=== PATIENT | female | born 1970 | race Caucasian/White ===

== ENCOUNTER → 2017-02-09 | Outpatient (CLI) | payer OTHER, MEDICAID | LOC: FIMAGING 13:36 | DX: Z48.89 Encounter for other specified surgical aftercare (principal); Z98.2 Presence of cerebrospinal fluid drainage device ==

== ENCOUNTER 2017-07-24 13:34 | Emergency (ER) | payer OTHER, MEDICAID ==
--- NOTE | 2017-07-24 13:43 | EDPHY ---
H & P Time Seen by Provider: 07/24/17 13:35 HPI/ROS: CHIEF COMPLAINT: Head injury and abrasion HISTORY OF PRESENT ILLNESS: 47-year-old female, wheelchair bound, arrives via ambulance after her electric wheelchair hit a bump on the sidewalk causing wheelchair to tip over land on her left side impacting her head with no loss of consciousness. No anticoagulant use history. History of CVA 1 month ago, treated at another facility. History of hydrocephalus, [employer] shunt. No alcohol or drug use. No headache. No amnesia. No nausea or vomiting. No midline C- spine pain. No peripheral paresthesia, weakness, numbness. Tetanus up-to-date PRIMARY CARE PROVIDER: REVIEW OF SYSTEMS: A ten point review of systems was performed and is negative with the exception of the items mentioned in the HPI PAST MEDICAL/SURGICAL HISTORY: no anticoagulant use, past medical history significant for depression, CVA, hydrocephalus, seizure disorder, [employer] shunt, depression. Wheelchair-bound in an electric wheelchair SOCIAL HISTORY: denies alcohol use at time of incident PHYSICAL EXAM 1) GENERAL: Well-developed, well-nourished, alert and oriented. Appears to be in no acute distress. Answering questions appropriately. Smiling, laughing appears well 2) HEAD: Normocephalic, abrasion to left parietal scalp. No hematoma. No depression. 3) HEENT: Pupils equal, round, reactive to light bilaterally. Negative Horners. Nasopharynx, oropharynx, clear. No deformity or angulation of nose. No septal hematoma. No rhinorrhea. No oral trauma. Ears bilaterally with normal tympanic membranes. No hemotympanum. No fluid or blood in the external auditory canal. No raccoon eyes. No Arellano sign. Teeth are normally aligned with no gross malocclusion, TMJ bilaterally nontender, facial bones nontender including the zygomatic arch, maxilla mandible. 4) NECK: No cervical collar is on. Posterior cervical spine is nontender, no stepoff, no effusion. Full range of motion which does not elicit any midline cervical spine pain, no posterior midline tenderness, no step-off. 5) LUNGS: Clear to auscultation bilaterally, no wheezes, no rhonchi, no retractions. No obvious signs of trauma. No chest wall pain. No flaring, no grunting. Moving symmetrically. No crepitus. 6) HEART: Regular rate and rhythm, 7) ABDOMEN: No guarding, no rebound, no focal tenderness, no peritoneal signs, no signs of trauma, no ecchymosis 8) MUSCULOSKELETAL: , no focal areas of tenderness, no obvious trauma. 9) BACK: No midline vertebral tenderness, no fluctuance, no step-off, no obvious trauma, no visual or palpable abnormality. 10) SKIN: No laceration. No abrasion DIFFERENTIAL DIAGNOSIS: Not necessarily in any particular order, my differential diagnosis includes, but is not limited to, concussion, skull fracture, intraparenchymal contusion, subarachnoid, subdural and epidural hematoma. The patient understands that this diagnosis is provisional and can never be 100% accurate. Constitutional: Initial Vital Signs Temperature (C) 38.0 C 07/24/17 13:44 Heart Rate 99 07/24/17 13:44 Respiratory Rate 19 07/24/17 13:44 Blood Pressure 122/90 H 07/24/17 13:44 O2 Sat (%) 93 07/24/17 13:44 O2 Delivery Mode Room Air Allergies/Adverse Reactions: No Known Allergies Allergy (Unverified 02/26/10 20:01) Home Medications: Medication Instructions Recorded Bcp 02/26/10 LEXAPRO 02/26/10 ASPIRIN 07/24/17 Medical Decision Making ED Course/Re-evaluation: Patient is feeling well with no complaints of pain or discomfort, no anticoagulant use, no headache, no nausea no vomiting, GCS 15, no signs of basilar skull fracture, no alcohol or drug use, no seizure, fall not greater than 3 feet. At this time will hold on CT imaging. Wound has been cleaned and dressed by ER staff. This patient has been re-evaluated with serial examinations, she is answering questions appropriately. I do not think that CT imaging the head is currently indicated. Nonetheless I have discussed this with her and she is in agreement. She would like to be discharged home. She feels comfortable being discharged home. Departure - Departure Disposition: Home, Routine, Self-Care Clinical Impression: Scalp abrasion Qualifiers: Encounter type: initial encounter Qualified Code(s): S00.01XA - Abrasion of scalp, initial encounter Head injury due to trauma Qualifiers: Encounter type: initial encounter Qualified Code(s): S09.90XA - Unspecified injury of head, initial encounter Condition: Good Instructions: Abrasion (ED), Head Injury (ED) Additional Instructions: ALTHOUGH THERE IS NO EVIDENCE OF SERIOUS HEAD INJURY AT THIS TIME, DELAYED SIGNS CAN APPEAR 24 TO 48 HOURS AFTER INJURY. WE RECOMMEND THAT YOU DESIGNATE A FRIEND OR FAMILY MEMBER TO OBSERVE YOU OVER THE NEXT FEW DAYS TO ENSURE THAT YOUR CONDITION IS PROGRESSING NORMALLY. PLEASE RETURN TO THE EMERGENCY DEPARTMENT (ED) IMMEDIATELY IF YOU HAVE INCREASED HEADACHE, PERSISTENT HEADACHE , VOMITING, WEAKNESS, CONFUSION OR VISUAL PROBLEMS. Referrals: Olga Skaggs MD [Medical Doctor] - 2-3 days, call for appt.
[2017-07-24 15:57] VITALS: BP 132/72; PULSE 72; RESP 19; TEMP 98.4; O2SAT 93
== END 2017-07-24 15:54 | disposition home or self-care (01) ==
LOC: EDUNIT#
DX: S09.90XA Unspecified injury of head, initial encounter (principal); S00.01XA Abrasion of scalp, initial encounter; Z79.82 Long term (current) use of aspirin; Z86.73 Personal history of transient ischemic attack (TIA), and cerebral infarction without residual deficits; V00.818A Other accident with wheelchair (powered), initial encounter; Y92.480 Sidewalk as the place of occurrence of the external cause

== ENCOUNTER 2017-11-13 09:22 | Emergency (ER) | payer OTHER, MEDICAID ==
[2017-11-13 09:38] VITALS: BP 137/81; PULSE 91; RESP 16; TEMP 97.9; O2SAT 96
--- NOTE | 2017-11-13 10:34 | EDPHY ---
H & P Time Seen by Provider: 11/13/17 09:58 HPI/ROS: Chief complaint. Fall, scalp laceration HPI. Patient is a 47-year-old female who had a fall last night struck the back of her head on the floor sustaining laceration. Patient normally uses a walker all the time. However, the walker does not fit in the bathroom so she must leave it at the threshold. She was on her way out of the bathroom to retrieve her walker when she coughed and lost her balance and fell backwards striking the back of her head. She denies loss of consciousness or neck pain. She sustained laceration to back of her head. No other injuries. Patient is not on blood thinners ROS Constitutional. no fever/chills, no weakness Eyes. no problems with vision ENT. no sore throat, no nasal drainage Cardiovascular. no chest pain Respiratory. no shortness of breath, no cough Abdominal. no abdominal pain, no nausea/vomiting, no diarrhea . no problems urinating MS. no calf pain/swelling, no neck/back pain, no joint pain Skin. Scalp laceration Lymph. no swollen glands Neuro. no headache, no dizziness, no difficulty walking or with speech Past Medical/Surgical History: Past medical history significant for CVA, depression Social History: Single, nonsmoker, no alcohol Smoking Status: Never smoked Physical Exam: General Appearance: Alert pleasant well-developed female mild distress vital signs are stable Eyes:[ Pupils equal and round no pallor or injection]. ENT,[ Mouth: Mucous membranes are moist.] Respiratory: [There are no retractions, lungs are clear to auscultation.] Cardiovascular:[ Regular rate and rhythm.] Gastrointestinal: [ Abdomen is soft and nontender, no masses, bowel sounds normal.] Neurological: [Awake and alert, sensory and motor exams grossly normal.] Skin: 2.5 cm vertical laceration to the occipital skull. No evidence for foreign body or infection. No palpable fracture Musculoskeletal: [Neck is supple nontender.] Extremities [ symmetrical, full range of motion.] Psychiatric:[ Patient is oriented X 3, there is no agitation.] Constitutional: Initial Vital Signs Temperature (C) 36.6 C 11/13/17 09:35 Heart Rate 91 11/13/17 09:35 Respiratory Rate 16 11/13/17 09:35 Blood Pressure 137/81 H 11/13/17 09:35 O2 Sat (%) 96 11/13/17 09:35 O2 Delivery Mode Room Air Allergies/Adverse Reactions: No Known Allergies Allergy (Unverified 02/26/10 20:01) Home Medications: Medication Instructions Recorded Bcp 02/26/10 LEXAPRO 02/26/10 ASPIRIN 07/24/17 Medical Decision Making Procedures: Procedure: Laceration repair. Verbal consent was obtained from the patient. The 2.5 cm laceration on the scalp was anesthetized in the usual fashion. The wound was irrigated, draped and explored to its base with a gloved finger. There were no deep structures involved. No tendon injury was identified. The wound was repaired with four 4- 0 Prolene sutures. The wound repair was simple. The procedure was performed by myself. ED Course/Re-evaluation: Patient remained stable. She and I discussed treatment plan including criteria for return and importance of follow-up and further evaluation. She expresses understanding and agreement Differential Diagnosis: Scalp laceration sustained in a fall. No loss of consciousness. Neurologically intact. No evidence of a concussion. She is not on blood thinners. No evidence for for retained foreign body or skull fracture Departure - Departure Disposition: Home, Routine, Self-Care Clinical Impression: Scalp laceration Qualifiers: Encounter type: initial encounter Qualified Code(s): S01.01XA - Laceration without foreign body of scalp, initial encounter Condition: Good Instructions: Care For Your Stitches (ED) Additional Instructions: Ice to the back of your head off and on today. Tylenol or ibuprofen as needed for pain. Return for worsening symptoms or signs of infection which are increased pain and swelling. Stitches out 1 week Referrals: Karen Ayoub MD [Primary Care Provider] - 5-7 days, call for appt.
== END 2017-11-13 11:11 | disposition home or self-care (01) ==
PROC: 0HQ0XZZ Repair Scalp Skin, External Approach (ICD-10-PCS; principal; 2017-11-13)
DX: S01.01XA Laceration without foreign body of scalp, initial encounter (principal); Z79.82 Long term (current) use of aspirin; Z86.73 Personal history of transient ischemic attack (TIA), and cerebral infarction without residual deficits; W01.198A Fall on same level from slipping, tripping and stumbling with subsequent striking against other object, initial encounter; Y92.002 Bathroom of unspecified non-institutional (private) residence as the place of occurrence of the external cause; Y93.01 Activity, walking, marching and hiking

== ENCOUNTER → 2019-03-21 | Outpatient (CLI) | payer OTHER, MEDICAID | LOC: FIMAGING 09:15 ==